=== PATIENT | female | born 1985 | race Caucasian/White ===

== ENCOUNTER 2023-07-03 09:29 | Emergency (ER) | payer MEDICAID ==
[~2023-07-03] VITALS: Ht 154.9 cm; Wt 80.5 kg
[~2023-07-03 09:29] MED LIST: CYCL-839; HYDR-2616; PREDNISONE 20 MG TABLET
[2023-07-03] MEDS ORDERED: PROCHLORPERAZINE EDISYLATE 5 MG/ML 2ML VIAL IV ONE (09:45)
[2023-07-03] MEDS ORDERED: SODIUM CHLORIDE 0.9% 1,000 ML IVB ONE (09:45)
[2023-07-03] MEDS ORDERED: MORPHINE SULFATE 4 MG/ML SYR/VIAL IV ONE (09:45)
[2023-07-03] MEDS ORDERED: PANTOPRAZOLE 40 MG/10 ML VIAL INJ IV ONE (09:45)
[2023-07-03 10:53] LABS: Basophils # (auto) 0 10 ^3/uL (0-0.2); Eosinophils # (auto) 0.1 10 ^3/uL (0-0.8); Lymphocytes # (auto) 0.6 10 ^3/uL (0.4-5.4); Mean Corpuscular Hgb Conc. 35.1 g/dL (32.0-36.0)
[2023-07-03 10:54] LABS: Basophils % (auto) 0.3 % (0.0-2.0); Eosinophils % (auto) 1.8 % (0.0-7.0); Hematocrit 42.8 % (36.0-46.0); Lymphocytes % (auto) 8.7 % (10.0-50.0); Mean Corpuscular Hemoglobin 36.7 pg (28.0-32.0); Mean Corpuscular Volume 104.5 fL (80.0-100.0); Monocytes # (auto) 0.5 10 ^3/uL (0-1.3); Monocytes % (auto) 7.8 % (0.0-12.0); Neutrophils # (auto) 5.3 10 ^3/uL (1.6-8.6); Neutrophils % (auto) 81.4 % (37.0-80.0); Red Blood Cells 4.09 10^6/uL (4.0-5.20); Red Cell Distribution Width 13.2 % (11.8-14.3); White Blood Cell 6.6 10^3/uL (4.4-10.8)
[2023-07-03 11:11] LABS: Alanine Aminotransferase 264 U/L (7-40); Alkaline Phosphatase 126 U/L (46-116); Anion Gap 10 (5-15); Aspartate Aminotransferase 276 U/L (13-40); Calcium 9.8 mg/dL (8.5-10.1); Carbon Dioxide 26 mmol/L (20-30); Chloride 98 mmol/L (98-107); Glucose 169 mg/dL (74-106); Potassium 3.3 mmol/L (3.5-5.1); Sodium 134 mmol/L (136-145)
[2023-07-03 11:12] LABS: Albumin 4.9 g/dL (3.2-4.8); Bilirubin, Total 1.4 mg/dL (0.2-1.0); Blood Urea Nitrogen < 5 mg/dL (9-23); Total Protein 7.5 g/dL (5.7-8.2)
[2023-07-03] MEDS ORDERED: IOHEXOL 300 MG/ML 100ML BOTTLE IJ ONE (11:33)
[2023-07-03 12:34] LABS: Amphetamine Screen, Urine Pos (NEGATIVE)
[2023-07-03 12:35] LABS: Barbiturate Scree,Urine Neg (NEGATIVE); Benzodiazephine Screen, Urine Neg (NEGATIVE); Cocaine Screen, Urine Neg (NEGATIVE); Opiate Scree,Urine Neg (NEGATIVE); Phencyclidine Screen, Urine Neg (NEGATIVE)
[2023-07-03 12:36] LABS: Cannabinoid Screen, Urine Pos (NEGATIVE)
[2023-07-03 12:47] LABS: Urine Bacteria NONE SEEN /hpf (None Seen); Urine Blood 2+ /uL (Negative); Urine Clarity Clear (Clear); Urine Color Yellow (Yellow); Urine Mucus FEW (None Seen); Urine Protein, UAD TRACE (Negative); Urine Specific Gravity 1.019 (1.001-1.035); Urine Urobilinogen Normal (Negative); Urine WBC 3 /hpf (0 - 5)
[2023-07-03] MEDS ORDERED: PANT40TA2 PO (14:08)
[2023-07-03] MEDS ORDERED: ZOFR4T PO (14:08)
[2023-07-03 14:37] VITALS: BP 120/87; PULSE 102; RESP 20; TEMP 98.7; O2SAT 95
[2023-07-03 15:24] LABS: Lipase 42 U/L (12-53)
== END 2023-07-03 14:39 | disposition home or self-care (01) ==
LOC: ER 09:29
DX: K29.00 Acute gastritis without bleeding (principal); F15.10 Other stimulant abuse, uncomplicated; I10 Essential (primary) hypertension; F17.210 Nicotine dependence, cigarettes, uncomplicated; F12.10 Cannabis abuse, uncomplicated; Z79.899 Other long term (current) drug therapy
CPT/HCPCS: 36415; 74177; 76705; 80053; 80307; 81001; 83690; 85025; 96361; 96374; 96375; 99285; C9113; J0780; J7030; Q9967